=== PATIENT | male | born 1935 | race Caucasian/White ===

== ENCOUNTER 2016-09-17 10:00 | Emergency (ER) | payer MEDICARE, MEDICAID ==
[~2016-09-17] VITALS: Ht 167.6 cm; Wt 68.0 kg
[~2016-09-17 10:00] MED LIST: ASPI-515 PO; ATOR80TA75 PO; CALC-72 PO; EZET10TA3 PO; HYDR-3307 PO; IBUP200T48 PO; LISI5TAB7 PO; MULT-82 PO; NICO4LOZ PO; NITR0.4T SL; OMEG1CAP6 PO; OXYC-229 PO; PLAN450T PO; SIMV40TA3 PO; TEST5POW3 INJ; TIZA4TAB PO
[2016-09-17] MEDS ORDERED: SODIUM CHLORIDE 0.9% 1,000ML IV ONE (11:00)
[2016-09-17] MEDS ORDERED: SODIUM CHLORIDE FLUSH 10ML SYR IVF ONE (11:00)
[2016-09-17 11:08] LABS: HEMOGLOBIN 11.9 g/dL (13.7-18.0)
[2016-09-17 11:19] LABS: BLOOD UREA NITROGEN 18 mg/dL (7-18)
[2016-09-17 11:30] LABS: PATH.CAST-FLAG NOT PRESENT; SPERM-FLAG NOT PRESENT; SRC-FLAG NOT PRESENT; XTAL-FLAG NOT PRESENT; YLC-FLAG NOT PRESENT
[2016-09-17] MEDS ORDERED: CEFTRIAXONE PMX 1GM/50ML 50 ML IVPB ONE (12:30)
[2016-09-17] MEDS ORDERED: CEFTRIAXONE PMX 1GM/50ML 50 ML ONE (12:59)
[2016-09-17] MEDS ORDERED: MORPHINE SULFATE 4 MG/ML, 1ML ONE (13:25)
[2016-09-17] MEDS ORDERED: ONDANSETRON 2MG/ML, 2ML IVPush ONE (13:30)
[2016-09-17] MEDS ORDERED: MORPHINE SULFATE 4 MG/ML, 1ML IVPush PRN (13:30)
[2016-09-17] MEDS ORDERED: ONDANSETRON 2MG/ML, 2ML ONE (13:30)
[2016-09-17 13:33] VITALS: BP 123/57
== END 2016-09-17 13:55 | disposition home or self-care (01) ==
LOC: ED 12:44
DX: R31.0 Gross hematuria (principal); I10 Essential (primary) hypertension; C34.90 Malignant neoplasm of unspecified part of unspecified bronchus or lung; I25.2 Old myocardial infarction; Z90.49 Acquired absence of other specified parts of digestive tract; Z95.1 Presence of aortocoronary bypass graft
CPT/HCPCS: 36415; 51702; 74176; 80048; 81001; 82040; 85025; 87086; 96365; 96375; 99285; J0696; J2405; J7030

== ENCOUNTER → 2016-10-19 | Outpatient (CLI) | payer MEDICARE, MEDICAID | END | disposition home or self-care (01) | LOC: CFH 11:07 | PROVIDERS: ATTEND Radiology Radiation Oncology | DX: C34.32 Malignant neoplasm of lower lobe, left bronchus or lung (principal); S32.029A Unspecified fracture of second lumbar vertebra, initial encounter for closed fracture; S22.089A Unspecified fracture of T11-T12 vertebra, initial encounter for closed fracture; R59.1 Generalized enlarged lymph nodes; R91.8 Other nonspecific abnormal finding of lung field; X58.XXXA Exposure to other specified factors, initial encounter; Y93.89 Activity, other specified; Y92.89 Other specified places as the place of occurrence of the external cause; Y99.8 Other external cause status | CPT/HCPCS: 71250 ==

== ENCOUNTER → 2016-10-20 | Outpatient (CLI) | payer MEDICARE, MEDICAID | END | disposition home or self-care (01) | LOC: CFH 09:06 | PROVIDERS: ATTEND Licensed Practical Nurse | DX: Z13.820 Encounter for screening for osteoporosis (principal); M85.88 Other specified disorders of bone density and structure, other site | CPT/HCPCS: 77080 ==

== ENCOUNTER → 2016-10-27 | Outpatient (CLI) | payer MEDICARE, MEDICAID | END | disposition home or self-care (01) | LOC: ROC 12:46 | PROVIDERS: ATTEND Radiology Radiation Oncology | DX: C34.32 Malignant neoplasm of lower lobe, left bronchus or lung (principal); C34.31 Malignant neoplasm of lower lobe, right bronchus or lung; Z98.890 Other specified postprocedural states | CPT/HCPCS: 99213; G0463 ==

== ENCOUNTER → 2016-11-03 | Outpatient (CLI) | payer MEDICARE, MEDICAID | END | disposition home or self-care (01) | LOC: PETCFH 08:39 | PROVIDERS: ATTEND Radiology Radiation Oncology | DX: C34.32 Malignant neoplasm of lower lobe, left bronchus or lung (principal); R91.1 Solitary pulmonary nodule; N21.0 Calculus in bladder; I70.0 Atherosclerosis of aorta; Z95.1 Presence of aortocoronary bypass graft | CPT/HCPCS: 78815; A9552 ==

== ENCOUNTER 2016-11-08 06:10 | Day surgery (SDC) | payer MEDICARE, MEDICAID ==
[~2016-11-08] VITALS: Ht 170.2 cm; Wt 64.2 kg
[2016-11-08 07:25] VITALS: BP 149/72
[2016-11-08] MEDS ORDERED: FLUMAZENIL 0.1 MG/1 ML, 5ML ONE (08:11)
[2016-11-08] MEDS ORDERED: FENTANYL PF 100 MCG/2ML ONE (08:11)
[2016-11-08] MEDS ORDERED: MIDAZOLAM 1 MG/ML, 5ML ONE (08:11)
[2016-11-08] MEDS ORDERED: NALOXONE 1 MG/ML, 2ML ONE (08:11)
[2016-11-08] MEDS ORDERED: AZEL205.2 NAS (08:22)
[2016-11-08] MEDS ORDERED: TAMS0.4C2 PO (08:22)
[2016-11-08] MEDS ORDERED: TESTOSTERONE SHOTS IM (08:22)
[2016-11-08] MEDS ORDERED: DIPH25CA61 PO (08:22)
== END 2016-11-08 11:00 ==
LOC: OUT 06:10
PROVIDERS: ATTEND Radiology Radiation Oncology
DX: R91.8 Other nonspecific abnormal finding of lung field (principal); I10 Essential (primary) hypertension; F17.210 Nicotine dependence, cigarettes, uncomplicated; Z87.891 Personal history of nicotine dependence; Z85.118 Personal history of other malignant neoplasm of bronchus and lung; Z88.3 Allergy status to other anti-infective agents; Z88.0 Allergy status to penicillin; Z90.49 Acquired absence of other specified parts of digestive tract
CPT/HCPCS: 32405; 71010; 77012; 88305; 99156; 99157; J2250; J3010; J2310

== ENCOUNTER → 2016-11-25 | Outpatient (CLI) | payer MEDICARE, MEDICAID ==
[~2016-11-25] MED LIST changes: +AZEL205.2 NAS; +DIPH25CA61 PO; +TAMS0.4C2 PO; +TESTOSTERONE SHOTS IM
== END | disposition home or self-care (01) ==
LOC: CFH 11:59
PROVIDERS: ATTEND Family Medicine
DX: M51.36 Other intervertebral disc degeneration, lumbar region (principal); M47.897 Other spondylosis, lumbosacral region; M51.27 Other intervertebral disc displacement, lumbosacral region; M48.54XA Collapsed vertebra, not elsewhere classified, thoracic region, initial encounter for fracture
CPT/HCPCS: 72148

== ENCOUNTER 2016-11-30 06:45 | Day surgery (SDC) | payer MEDICARE, MEDICAID ==
[~2016-11-30] VITALS: Ht 170.2 cm; Wt 61.0 kg
[2016-11-30] MEDS ORDERED: LACTATED RINGERS 1,000 ML IV SCH (07:29)
[2016-11-30] MEDS ORDERED: LIDOCAINE 1%, 2ML SQ PRN (07:30)
[2016-11-30 07:37] VITALS: BP 108/58
[2016-11-30] MEDS ORDERED: LABETALOL 5MG/ML, 20ML IV PRN (08:30)
[2016-11-30] MEDS ORDERED: FENTANYL PF 100 MCG/2ML IV PRN (08:30)
[2016-11-30] MEDS ORDERED: HYDROmorphone 1 MG/ML, 1ML IV PRN (08:30)
[2016-11-30] MEDS ORDERED: hydrALAzine 20 MG/ML, 1ML IV PRN (08:30)
[2016-11-30] MEDS ORDERED: ACETAMINOPHEN 325 MG TABLET PO PRN (08:30)
[2016-11-30] MEDS ORDERED: ONDANSETRON 2MG/ML, 2ML IVPush PRN (08:30)
[2016-11-30] MEDS ORDERED: OXYcodone 5 MG/5 ML ORAL.SOL UDC PO PRN (08:30)
[2016-11-30] MEDS ORDERED: PROMETHAZINE 25 MG/ML, 1ML IV PRN (08:30)
[2016-11-30] MEDS ORDERED: EPHEDRINE 50 MG/ML, 1ML IVPush PRN (08:30)
[2016-11-30] MEDS ORDERED: HYDROcodone/APAP 7.5-325MG/15ML UDC PO PRN (08:30)
[2016-11-30] MEDS ORDERED: FENTANYL PF 250 MCG/5ML ONE (08:41)
[2016-11-30] MEDS ORDERED: EPHEDRINE 50 MG/ML, 1ML ONE (08:43)
[2016-11-30] MEDS ORDERED: PHENYLEPHRINE 10 MG/ML ONE (08:43)
[2016-11-30] MEDS ORDERED: DEXAMETHASONE 4 MG/ML, 1ML ONE (08:43)
[2016-11-30] MEDS ORDERED: PROPOFOL 10 MG/ML, 20ML ONE (08:43)
[2016-11-30] MEDS ORDERED: ONDANSETRON 2MG/ML, 2ML ONE (08:43)
[2016-11-30] MEDS ORDERED: CLINDAMYCIN 150 MG/ML, 6ML ONE (09:00)
[2016-11-30] MEDS ORDERED: CIPROFLOXACIN/PMX 400MG/200ML 200 ML ONE (09:02)
== END 2016-11-30 11:15 | disposition home or self-care (01) ==
LOC: OUT 06:45
PROVIDERS: ATTEND Urology
DX: N21.0 Calculus in bladder (principal); N40.1 Benign prostatic hyperplasia with lower urinary tract symptoms; N13.8 Other obstructive and reflux uropathy
CPT/HCPCS: 52318; 82360; 88300; 93005; J0744; J1100; J2370; J2405; J2704; J3010; J7120

== ENCOUNTER 2017-01-18 08:52 | Day surgery (SDC) | payer MEDICARE, MEDICAID ==
[~2017-01-18] VITALS: Ht 170.2 cm; Wt 58.5 kg
[2017-01-18] MEDS ORDERED: LIPITOR PO (09:53)
[2017-01-18] MEDS ORDERED: FINA5TAB4 PO (09:53)
[2017-01-18 09:55] VITALS: BP 94/48
[2017-01-18] MEDS ORDERED: LIDOCAINE 1%, 2ML ONE (10:08)
[2017-01-18] MEDS ORDERED: MIDAZOLAM 1 MG/ML, 5ML ONE (10:25)
[2017-01-18] MEDS ORDERED: NALOXONE 1 MG/ML, 2ML ONE (10:26)
[2017-01-18] MEDS ORDERED: FENTANYL PF 100 MCG/2ML ONE (10:26)
[2017-01-18] MEDS ORDERED: FLUMAZENIL 0.1 MG/1 ML, 5ML ONE (10:26)
[2017-01-18] MEDS ORDERED: SODIUM CHLORIDE 0.9% 1,000 ML IV ONE (10:30)
[2017-01-18] MEDS ORDERED: LIDOCAINE 1%, 2ML SQ PRN (10:30)
== END 2017-01-18 12:25 ==
LOC: OUT 08:52
PROVIDERS: ATTEND Internal Medicine Hematology & Oncology
DX: C34.91 Malignant neoplasm of unspecified part of right bronchus or lung (principal); I10 Essential (primary) hypertension; G62.9 Polyneuropathy, unspecified; E78.5 Hyperlipidemia, unspecified; Z98.890 Other specified postprocedural states; Z90.49 Acquired absence of other specified parts of digestive tract
CPT/HCPCS: 32405; 77012; 88304; 99156; 99157; J2250; J3010; J3490; J7030; J2310

== ENCOUNTER 2017-02-02 11:37 | Inpatient (IN) | payer MEDICARE, MEDICAID ==
[~2017-02-02] VITALS: Ht 167.6 cm; Wt 59.4 kg
[~2017-02-02 11:37] MED LIST changes: +ATOR-2 PO; -ATOR80TA75 PO; +CALC-534 PO; -CALC-72 PO; +EZET10TA18 PO; -EZET10TA3 PO; +FINA5TAB4 PO; +LIPITOR PO; +MULT-224 PO; -MULT-82 PO; -OXYC-229 PO; +OXYC-307 PO
[2017-02-02 12:27] LABS: HEMATOCRIT 39.1 % (39.2-51.8); WHITE BLOOD COUNT 14.1 x10^3/uL (3.4-10)
[2017-02-02 12:35] LABS: ASPARTATE AMINO TRANSFERASE 34 U/L (15-37); BLOOD UREA NITROGEN 19 mg/dL (7-18)
[2017-02-02] MEDS ORDERED: POTASSIUM CHLORIDE 40 MEQ in SODIUM CHLORIDE 0.9% 500 ML IV ONE (13:30)
[2017-02-02] MEDS ORDERED: SODIUM CHLORIDE 0.9% 1,000ML IVBOLUS ONE (13:30)
[2017-02-02] MEDS ORDERED: CHOL400C11 PO (13:36)
[2017-02-02] MEDS ORDERED: ATOR-2 PO (13:36)
[2017-02-02] MEDS ORDERED: TEST200V IM (13:36)
[2017-02-02] MEDS ORDERED: DAILY VITAMIN PO (13:36)
[2017-02-02] MEDS ORDERED: [UNRECOGNIZED DRUG - OTHER] PO (13:36)
[2017-02-02] MEDS ORDERED: SENN1TAB67 PO (13:36)
[2017-02-02] MEDS ORDERED: ASPI-496 PO (13:36)
[2017-02-02] MEDS ORDERED: OCCUVITE PO (13:36)
[2017-02-02 14:15] LABS: PATH.CAST-FLAG NOT PRESENT; SPERM-FLAG NOT PRESENT; SRC-FLAG NOT PRESENT; XTAL-FLAG NOT PRESENT; YLC-FLAG NOT PRESENT
[2017-02-02 15:25] VITALS: BP 135/54
[2017-02-02] MEDS ORDERED: morphine SULFATE 10 MG/ML, 1ML IVPush PRN (15:30)
[2017-02-02] MEDS ORDERED: ACETAMINOPHEN 325 MG TABLET PO PRN (15:30)
[2017-02-02] MEDS ORDERED: DOCUSATE 100 MG CAPSULE PO PRN (15:30)
[2017-02-02] MEDS ORDERED: POLYETHYLENE GLYCOL 17 GM PACKET PO PRN (15:30)
[2017-02-02] MEDS ORDERED: hydrALAzine 20 MG/ML, 1ML IVPush PRN (15:30)
[2017-02-02] MEDS ORDERED: ONDANSETRON 2MG/ML, 2ML IVPush PRN (15:30)
[2017-02-02] MEDS ORDERED: MAGNESIUM SULFATE PMX 4GM/100M 100 ML IV ONE (16:00)
[2017-02-02 17:41] LABS: BLOOD UREA NITROGEN 19 mg/dL (7-18)
[2017-02-02] MEDS ORDERED: CALCITONIN SALMON 200 UNITS/ML, 2ML SQ ONE (18:00)
[2017-02-02] MEDS ORDERED: ZOLEDRONIC ACID 0.8 MG/ML VIAL IV SCH (18:00)
[2017-02-02] MEDS: HEPARIN 5,000 UNITS/ML, 1ML SQ SCH (18:02)
[2017-02-02 18:07] LABS: TOTAL IRON BINDING CAPACITY 219 mcg/dL (250-450)
[2017-02-02 19:37] VITALS: BP 145/62
[2017-02-02] MEDS ORDERED: ZOLEDRONIC ACID 4 MG in SODIUM CHLORIDE 0.9% 100 ML IVPB ONE (20:00)
[2017-02-02] MEDS: NS + 20MEQ KCL 1,000 ML IV SCH (23:00)
[2017-02-03 01:40] VITALS: BP 137/61
[2017-02-03] MEDS: HEPARIN 5,000 UNITS/ML, 1ML SQ SCH ×3 (01:40→20:26)
[2017-02-03 05:07] LABS: HEMATOCRIT 37.6 % (39.2-51.8); HEMOGLOBIN 12.1 g/dL (13.7-18.0); WHITE BLOOD COUNT 18.2 x10^3/uL (3.4-10)
[2017-02-03 05:21] LABS: ASPARTATE AMINO TRANSFERASE 38 U/L (15-37); BLOOD UREA NITROGEN 20 mg/dL (7-18)
[2017-02-03] MEDS: NS + 20MEQ KCL 1,000 ML IV SCH ×2 (05:34→17:00)
[2017-02-03] MEDS ORDERED: POTASSIUM CHLORIDE 20 MEQ TAB.ER.PRT PO ONE (08:00)
[2017-02-03 08:16] VITALS: BP 148/60
[2017-02-03 13:15] VITALS: BP 143/60
[2017-02-03] MEDS: metroNIDAZOLE 500 MG TABLET PO SCH ×2 (17:00→20:26)
[2017-02-03 20:34] VITALS: BP 131/67
[2017-02-03] MEDS: OXYcodone/APAP 5/325MG TABLET PO PRN (21:43)
[2017-02-04] MEDS: NS + 20MEQ KCL 1,000 ML IV SCH (00:50)
[2017-02-04 00:52] VITALS: BP 85/42
[2017-02-04] MEDS ORDERED: SODIUM CHLORIDE 0.9%, 500ML IVBOLUS ONE (01:30)
[2017-02-04 03:26] VITALS: BP 117/53
[2017-02-04] MEDS: HEPARIN 5,000 UNITS/ML, 1ML SQ SCH ×3 (03:32→20:36)
[2017-02-04 05:16] LABS: HEMATOCRIT 32.8 % (39.2-51.8); HEMOGLOBIN 10.8 g/dL (13.7-18.0); WHITE BLOOD COUNT 15.2 x10^3/uL (3.4-10)
[2017-02-04 05:34] LABS: ASPARTATE AMINO TRANSFERASE 34 U/L (15-37); BLOOD UREA NITROGEN 23 mg/dL (7-18); FERRITIN 386.8 ng/mL (26-388)
[2017-02-04 08:12] VITALS: BP 129/58
[2017-02-04] MEDS ORDERED: MAGNESIUM SULFATE PMX 2GM/50ML 50 ML IV ONE (09:30)
[2017-02-04] MEDS: metroNIDAZOLE 500 MG TABLET PO SCH ×3 (09:51→20:36)
[2017-02-04] MEDS: SODIUM CHLORIDE 0.45% 1,000 ML IV SCH ×2 (09:52→23:05)
[2017-02-04 14:14] VITALS: BP 134/63
[2017-02-04] MEDS: POTASSIUM PHOSPHATE 44 MEQ in SODIUM CHLORIDE 0.9% 500 ML IV SCH ×2 (15:27→23:02)
[2017-02-04] MEDS: FERROUS SULFATE 325 MG TABLET PO SCH ×2 (15:28→20:36)
[2017-02-04] MEDS: OXYcodone/APAP 5/325MG TABLET PO PRN ×2 (16:21→23:02)
[2017-02-04 18:42] VITALS: BP 135/64
[2017-02-04] MEDS: ALBUTEROL SULFATE 2.5 MG/3 ML NPPB SCH (21:05)
[2017-02-05] MEDS: HEPARIN 5,000 UNITS/ML, 1ML SQ SCH ×3 (03:41→20:18)
[2017-02-05 03:45] VITALS: BP 144/71
[2017-02-05 05:17] LABS: HEMATOCRIT 34.7 % (39.2-51.8); HEMOGLOBIN 11.5 g/dL (13.7-18.0); WHITE BLOOD COUNT 15.1 x10^3/uL (3.4-10)
[2017-02-05 05:25] LABS: BLOOD UREA NITROGEN 22 mg/dL (7-18)
[2017-02-05 05:29] LABS: ASPARTATE AMINO TRANSFERASE 35 U/L (15-37)
[2017-02-05 07:29] VITALS: BP 127/60
[2017-02-05] MEDS: SODIUM CHLORIDE 0.45% 1,000 ML IV SCH ×2 (09:08→17:42)
[2017-02-05] MEDS: metroNIDAZOLE 500 MG TABLET PO SCH ×3 (09:08→20:18)
[2017-02-05] MEDS: FERROUS SULFATE 325 MG TABLET PO SCH ×3 (09:08→17:41)
[2017-02-05 14:09] VITALS: BP 150/65
[2017-02-05] MEDS ORDERED: ALBUTEROL SULFATE 2.5 MG/3 ML ONE (17:38)
[2017-02-05] MEDS ORDERED: ALBUTEROL SULFATE 2.5 MG/3 ML NPPB ONE (18:00)
[2017-02-05 20:00] VITALS: BP 135/63
[2017-02-05] MEDS ORDERED: LORazepam 2 MG/ML, 1ML IV PRN (20:00)
[2017-02-06 04:31] LABS: HEMATOCRIT 34.5 % (39.2-51.8); HEMOGLOBIN 11.3 g/dL (13.7-18.0); WHITE BLOOD COUNT 15.4 x10^3/uL (3.4-10)
[2017-02-06] MEDS: SODIUM CHLORIDE 0.45% 1,000 ML IV SCH ×3 (04:42→20:21)
[2017-02-06] MEDS: HEPARIN 5,000 UNITS/ML, 1ML SQ SCH ×3 (04:42→20:19)
[2017-02-06 04:44] VITALS: BP 137/52
[2017-02-06 04:44] LABS: BLOOD UREA NITROGEN 16 mg/dL (7-18)
[2017-02-06 04:48] LABS: ASPARTATE AMINO TRANSFERASE 38 U/L (15-37)
[2017-02-06] MEDS: ALBUTEROL SULFATE 2.5 MG/3 ML NPPB SCH ×4 (07:00→19:25)
[2017-02-06] MEDS: FERROUS SULFATE 325 MG TABLET PO SCH ×4 (07:43→17:36)
[2017-02-06] MEDS: metroNIDAZOLE 500 MG TABLET PO SCH ×3 (07:43→20:21)
[2017-02-06 08:21] VITALS: BP 131/61
[2017-02-06] MEDS ORDERED: POTASSIUM CHLORIDE 40 MEQ in SODIUM CHLORIDE 0.9% 500 ML IV ONE (12:00)
[2017-02-06 13:59] VITALS: BP 114/63
[2017-02-06] MEDS: OXYcodone/APAP 5/325MG TABLET PO PRN (14:04)
[2017-02-06] MEDS ORDERED: DOCUSATE 100 MG CAPSULE PO PRN (15:30)
[2017-02-06] MEDS ORDERED: ACETAMINOPHEN 325 MG TABLET PO PRN (15:30)
[2017-02-06] MEDS ORDERED: ONDANSETRON 2MG/ML, 2ML IVPush PRN (15:30)
[2017-02-06] MEDS ORDERED: LORazepam 2 MG/ML, 1ML IV PRN (15:30)
[2017-02-06] MEDS ORDERED: POLYETHYLENE GLYCOL 17 GM PACKET PO PRN (15:30)
[2017-02-06] MEDS ORDERED: hydrALAzine 20 MG/ML, 1ML IVPush PRN (15:30)
[2017-02-06] MEDS: LORazepam 2 MG/ML, 1ML IVPush PRN (15:31)
[2017-02-06 19:06] VITALS: BP 145/49
[2017-02-06] MEDS: morphine SULFATE 10 MG/ML, 1ML IVPush PRN (21:22)
[2017-02-07 01:59] VITALS: BP 103/50
[2017-02-07] MEDS: LORazepam 2 MG/ML, 1ML IVPush PRN (02:39)
[2017-02-07] MEDS: SODIUM CHLORIDE 0.45% 1,000 ML IV SCH ×3 (02:40→20:34)
[2017-02-07 04:35] LABS: HEMATOCRIT 33.5 % (39.2-51.8); HEMOGLOBIN 11.1 g/dL (13.7-18.0); WHITE BLOOD COUNT 15.5 x10^3/uL (3.4-10)
[2017-02-07 04:45] LABS: ASPARTATE AMINO TRANSFERASE 37 U/L (15-37); BLOOD UREA NITROGEN 14 mg/dL (7-18)
[2017-02-07] MEDS: HEPARIN 5,000 UNITS/ML, 1ML SQ SCH ×3 (04:50→20:34)
[2017-02-07] MEDS: morphine SULFATE 10 MG/ML, 1ML IVPush PRN ×2 (04:50→22:54)
[2017-02-07 07:55] VITALS: BP 118/71
[2017-02-07] MEDS: FERROUS SULFATE 325 MG TABLET PO SCH ×3 (08:00→20:34)
[2017-02-07] MEDS: ALBUTEROL SULFATE 2.5 MG/3 ML NPPB SCH ×4 (08:30→19:10)
[2017-02-07] MEDS: metroNIDAZOLE 500 MG TABLET PO SCH ×3 (12:23→20:34)
[2017-02-07] MEDS: OXYcodone/APAP 5/325MG TABLET PO PRN ×2 (12:32→20:34)
[2017-02-07 14:25] VITALS: BP 120/52
[2017-02-07 15:06] LABS: ALPHA-1-GLOBULIN 0.3 g/dL (0.0-0.4); GAMMA GLOBULIN 0.8 g/dL (0.4-1.8); PROTEIN TOTAL 5.9 g/dL (6.0-8.5)
[2017-02-07 18:36] VITALS: BP 113/49
[2017-02-08 02:55] VITALS: BP 115/56
[2017-02-08] MEDS: HEPARIN 5,000 UNITS/ML, 1ML SQ SCH ×2 (03:14→12:00)
[2017-02-08] MEDS: SODIUM CHLORIDE 0.45% 1,000 ML IV SCH (03:17)
[2017-02-08] MEDS: LORazepam 2 MG/ML, 1ML IVPush PRN (03:17)
[2017-02-08] MEDS: OXYcodone/APAP 5/325MG TABLET PO PRN ×2 (04:45→13:34)
[2017-02-08] MEDS: FERROUS SULFATE 325 MG TABLET PO SCH ×2 (08:00→12:00)
[2017-02-08] MEDS: ALBUTEROL SULFATE 2.5 MG/3 ML NPPB SCH ×2 (08:05→11:00)
[2017-02-08 08:15] VITALS: BP 112/51
[2017-02-08] MEDS: metroNIDAZOLE 500 MG TABLET PO SCH (09:00)
[2017-02-08 12:20] VITALS: BP 115/62
[2017-02-08] MEDS ORDERED: ALBUTEROL SULFATE 2.5 MG/3 ML NPPB PRN (16:30)
== END 2017-02-08 17:20 | disposition hospice, home (50) | DRG 371 ==
LOC: ED 13:12 → EDIP 13:13 → ED 13:58 → 4WST 14:48 → 3NW 02-04 16:56
PROVIDERS: ADMIT Internal Medicine; ATTEND Family Medicine
DX: A04.7 Enterocolitis due to Clostridium difficile (principal); G93.41 Metabolic encephalopathy; E43 Unspecified severe protein-calorie malnutrition; N17.9 Acute kidney failure, unspecified; E87.0 Hyperosmolality and hypernatremia; C78.00 Secondary malignant neoplasm of unspecified lung; E86.1 Hypovolemia; E83.39 Other disorders of phosphorus metabolism; E83.42 Hypomagnesemia; D50.9 Iron deficiency anemia, unspecified; E78.5 Hyperlipidemia, unspecified; E83.52 Hypercalcemia; E87.6 Hypokalemia; G89.29 Other chronic pain; I10 Essential (primary) hypertension; G62.9 Polyneuropathy, unspecified; M54.9 Dorsalgia, unspecified; I25.10 Atherosclerotic heart disease of native coronary artery without angina pectoris; K63.9 Disease of intestine, unspecified; F17.200 Nicotine dependence, unspecified, uncomplicated; Z66 Do not resuscitate; I25.2 Old myocardial infarction; Z95.1 Presence of aortocoronary bypass graft; Z90.49 Acquired absence of other specified parts of digestive tract; Z88.0 Allergy status to penicillin; Z88.8 Allergy status to other drugs, medicaments and biological substances; Z85.819 Personal history of malignant neoplasm of unspecified site of lip, oral cavity, and pharynx; Z85.118 Personal history of other malignant neoplasm of bronchus and lung; Z85.820 Personal history of malignant melanoma of skin; Z82.49 Family history of ischemic heart disease and other diseases of the circulatory system
CPT/HCPCS: 36415; 71010; 78306; 80048; 80053; 81001; 82140; 82306; 82310; 82330; 82397; 82607; 82652; 82728; 82746; 83540; 83550; 83690; 83735; 83970; 84100; 84155; 84165; 84443; 85025; 87040; 87324; 87493; 93005; 93306; 94640; 96365; J1644; J2405; J3480; J3489; J7613; A9503; C9898; J0630; J2060; J2270; J3475; J7030; J7040